=== PATIENT | female | born 1990 | race Caucasian/White ===

== ENCOUNTER 2019-07-07 12:29 | Outpatient (CLI) | payer OTHER ==
[~2019-07-07 12:29] MED LIST: CIPRO500 MG PO; FLONASE16 GM NS; GILTUSS TR TAB1 EACH PO; IBUPROFEN800 MG PO; LEVAQUIN500 MG PO; SPRINTEC1 TAB PO; ZOFRAN4 MG PO; ZYRTEC10 MG PO
== END 2019-07-07 12:36 | disposition home or self-care (01) ==
LOC: LAB 12:29
DX: J11.1 Influenza due to unidentified influenza virus with other respiratory manifestations (principal)